=== PATIENT | male | born 1945 | race Caucasian/White ===

== ENCOUNTER 2021-02-20 11:13 | Inpatient (IN) ==
[2021-02-20] MEDS ORDERED: HYDROmorphone 0.5 MG/0.5 ML SYRINGE IM ONE (12:19)
[2021-02-20] MEDS ORDERED: ACETAMINOPHEN 325 MG TABLET PO ONE (12:20)
--- NOTE | 2021-02-20 12:35 | Emergency Department Note ---
Extremity Problem HPI <Rachel Ayala PA-C - Last Filed: 02/20/21 18:10> General Chief complaint: Trauma Stated complaint: possible lt hip fx Time Seen by Provider: 02/20/21 11:45 Source: patient Mode of arrival: ambulatory Limitations: no limitations History of Present Illness HPI Narrative: This is a 75-year-old wheelchair dependent male patient with history of a neurodegenerative condition who presents today with right hip pain and ambulatory dysfunction secondary to a fall he sustained on (3 days ago) while transferring from his car to his wheelchair independently and falling on his driveway blacktop. He states he fell on his right hip and his right elbow. Right elbow is painful but he has full range of motion and no deformities. His right hip had immediate pain but he was still able to stand and transfer. Over the last 3 days he has had increasing right hip pain and inability to fully range his right hip joint. He has been taking hydrocodone without much benefit. Other past medical history significant for stroke, coronary artery disease status post CABG x 3, and type 2 diabetes. Related Data Home Medications Medication Instructions Recorded Confirmed hydrocodone 7.5 mg-acetaminophen 1 - 2 tab PO QDAY PRN tab 07/25/18 02/20/21 325 mg tablet famotidine 40 mg tablet See Rx Instructions PO .COMPLEX 10/17/19 02/20/21 loratadine 10 mg tablet (Allergy See Rx Instructions PO .COMPLEX 10/17/19 02/20/21 Relief (loratadine)) [id number]-voro-minerals 18 See Rx Instructions PO .COMPLEX 10/17/19 02/20/21 mg-0.4 mg tablet isosorbide mononitrate 60 mg 60 mg PO QDAY tab 11/19/19 02/20/21 tablet,extended release 24 hr insulin glargine 100 unit/mL (3 20 unit SUB-Q HS 02/20/21 02/20/21 mL) subcutaneous pen metoprolol succinate 25 mg 25 mg PO QHS 02/20/21 02/20/21 tablet,extended release 24 hr rosuvastatin 5 mg tablet 5 mg PO QHS 02/20/21 02/20/21 valsartan 160 mg tablet 320 mg PO QHS 02/20/21 02/20/21 Previous Rx's Medication Instructions Recorded Standard Wheelchair #1 ea 01/17/19 aspirin 81 mg tablet,delayed 81 mg PO ONCE #30 tab 06/03/19 release Wheel chair ramp #1 ea 08/19/19 Wheelchair (electric) #1 ea 08/19/19 spironolactone 25 mg tablet 25 mg PO QDAY #90 tab 10/09/19 leg brace (Ankle Brace) #2 each 12/02/19 blood sugar diagnostic (Accu-Chek #100 each 02/25/20 Amanda Plus test strp) nitroglycerin 0.4 mg sublingual 0.4 mg BUCCAL Q5-15M PRN #7 tab 02/25/20 tablet Wheelchair #1 ea 04/16/20 Wheelchair #1 ea 04/16/20 fluoxetine 20 mg capsule 10 mg PO BID #180 cap 06/30/20 metformin 500 mg tablet 500 mg PO BID #180 tab 06/30/20 clopidogrel 75 mg tablet 75 mg PO QDAY #30 tab 09/02/20 Allergies Allergy/AdvReac Type Severity Reaction Status Date / Time atorvastatin [From Lipitor] AdvReac Intermediate Muscle Pain Verified 02/20/21 11:34 ezetimibe [From Vytorin] AdvReac Intermediate Muscle Pain Verified 02/20/21 11:34 simvastatin [From Vytorin] AdvReac Intermediate Muscle Pain Verified 02/20/21 11:34 hydromorphone [From Dilaudid] AdvReac Mild Itching Verified 02/20/21 11:34 Review of Systems <Rachel Ayala PA-C - Last Filed: 02/20/21 18:10> ROS ROS Narrative: Narrative: All systems ED: reviewed and negative except as stated. PFSH <Rachel Ayala PA-C - Last Filed: 02/20/21 18:10> Narrative Patient History Narrative: Narrative: Medical/Surgical/Family History All Active Problems (Updated 02/20/21 @ 18:10 by Rachel Ayala PA-C) Acetabulum fracture, right (Acute) Closed fracture of inferior pubic ramus (Acute) CVA (cerebral vascular accident) (Acute) Medicare annual wellness visit, initial (Acute) Diabetes mellitus with hyperglycemia (Acute) Osteomyelitis (Acute) Spondylosis without myelopathy or radiculopathy, lumbosacral region (Acute) Spondylosis without myelopathy or radiculopathy, lumbar region (Acute) History of surgery (Acute) History of stroke (Acute) Unspecified macular degeneration (Acute) Hypertension (Acute) Depression (Acute) Heart disease (Acute) Anxiety disorder, unspecified (Acute) Chronic pain (Acute) Low back pain (Acute) Wedge compression fracture of fourth lumbar vertebra (Acute) Post-traumatic stress disorder, chronic (Acute) Abnormal gait (Acute) Generalized weakness (Acute) History of wrist fracture (Chronic) Post traumatic stress disorder (Chronic) BPH (benign prostatic hypertrophy) with urinary retention (Chronic) Geriatric health maintenance (Chronic) Bradycardia (Chronic) Achilles tendinitis, left leg (Chronic) S/P coronary artery stent placement (Chronic) Rhinitis, allergic (Chronic) Retrograde ejaculation (Chronic) Plantar fasciitis (Chronic) Myocardial infarction, old (Chronic) Microalbuminuria (Chronic) Lumbar sprain (Chronic) Hypertension, essential (Chronic) Hyperlipemia (Chronic) Fatigue (Chronic) Esophageal reflux (Chronic) ED (erectile dysfunction) (Chronic) Diabetes mellitus, type II (Chronic) S/P CABG x 3 (Chronic) Chronic low back pain (Chronic) Arrhythmia (Chronic) Medical History Abnormal gait Achilles tendinitis, left leg Aftercare following joint replacement surgery Anxiety disorder, unspecified Arrhythmia BPH (benign prostatic hypertrophy) with urinary retention Bradycardia Chronic low back pain Chronic pain Cumulative trauma from repetitive motion CVA (cerebral vascular accident) Depression Diabetes mellitus with hyperglycemia Diabetes mellitus, type II ED (erectile dysfunction) Esophageal reflux Fatigue Geriatric health maintenance Heart disease Hemarthrosis of knee, right Hip pain History of stroke History of wrist fracture Left wrist fracture. Hyperlipemia Hypertension Hypertension, essential Injury of meniscus of knee 07/08/2014 Joint effusion-lower leg Low back pain Lumbar sprain Medicare annual wellness visit, initial Microalbuminuria 01/02/2014 Myalgia and myositis Due to statin, stop vytorin, try crestor 40mg once daily given its lower incidence of myalgia. Also LDL goal is < 70, pt was 75. Myocardial infarction, old 1995 Osteomyelitis Otitis externa, acute Plantar fasciitis Post traumatic stress disorder Post-traumatic stress disorder, chronic Retrograde ejaculation 05/02/2013 Rhinitis, allergic Sinus pain 03/01/2013 Skin tag Spondylosis without myelopathy or radiculopathy, lumbar region Spondylosis without myelopathy or radiculopathy, lumbosacral region Swelling of right lower extremity Unspecified macular degeneration Wedge compression fracture of fourth lumbar vertebra Surgical History History of knee surgery Left knee History of right knee surgery (10/28/14) Dr. Amaro - S/P microfracture of the medial femoral condyle right knee History of surgery Vertebroplasty L4 w/sed 09/26/19 Hx of left knee surgery (~1984) Hx of right knee surgery (~2014) Hx of transurethral prostatectomy S/P CABG x 3 [id number] S/P coronary artery stent placement 05/2006 - 3 stents S/P wrist surgery Family History Mother Essential hypertension Cardiac disease Type 2 diabetes mellitus Coronary artery disease Father Parkinsons Grandfather MVA (motor vehicle accident) Grandmother Kidney problem Social History Smoking Status: Former smoker Alcohol Intake Frequency: a few times a month Substance Use: does not use Exam <Rachel Ayala PA-C - Last Filed: 02/20/21 18:10> Narrative Narrative: General: AOx3, NAD, nontoxic appearing. Pleasant and conversant. HEENT: PERRL, EOMI, normocephalic. Moist mucous membranes. Normal facies and normal dentition. Chest: Symmetric Respiratory:No respiratory distress. Unlabored breathing. Heart: Regular rate Abdomen: Non-tender, Non distended, normal bowel tones. No organomegaly. Extremities: Warm and well perfused. No edema. DP 2+ bilaterally. No venous stasis. No leg length discrepancy or deformity to the right lower extremity. There is abrasion and ecchymosis to the right greater trochanter and this is exquisitely tender to palpation. Hip flexion is within normal limits, but the patient has very painful external hip rotation. He is neurovascularly intact. Right elbow with ecchymosis to the olecranon. No deformity, no pain to palpation of the epicondyles or radial head. Normal full range of motion. Neuro: No focal deficits. Cranial nerves II-XII grossly normal. Skin: Warm dry, no rashes or lesions, no cyanosis. Psych: Normal mood and affect Heme/Lymph: No abnormal bruising General Limitations: no limitations Course <Rachel Ayala PA-C - Last Filed: 02/20/21 18:10> Course Course Narrative: 75-year-old male who is wheelchair dependent with neurodegenerative condition comes to the ER after a fall with complaints of right hip pain, right elbow pain, and ambulatory dysfunction. Reevaluation(s) Reevaluation #1: 2 view x-ray of the right hip shows no acute fractures. Given the patient's level of pain and dysfunction will obtain a CT without contrast of the hip to rule out fractures not seen on plain film. Give 975 MG of oral Tylenol x1 dose Reevaluation #2: CT scan without contrast of the pelvis shows an acetabular roof fracture and a inferior pubic ramus fracture. I have spoken with Dr. Dodson who recommends nonoperative and nonweightbearing to the affected extremity. Given the patient 's profound deconditioning in the setting of his neurodegenerative disorder, I do not believe that he is a safe discharge home and would likely need fci placement. Both he and his are amenable to the idea and I have reached out to the hospitalist for admission. Awaiting their call. Vital Signs Vital signs: Vital Signs Temperature 98.2 F 02/20/21 11:14 Pulse Rate 99 H 02/20/21 11:14 Respiratory Rate 18 02/20/21 11:14 Blood Pressure 152/72 02/20/21 11:14 Pulse Oximetry (%) 95 02/20/21 11:14 Temperature 97.1 F 02/21/21 03:00 Pulse Rate 66 02/21/21 03:00 Respiratory Rate 16 02/21/21 03:00 Blood Pressure 142/70 02/21/21 03:00 Pulse Oximetry (%) 92 02/21/21 03:00 [facility] <Rachel Ayala PA-C - Last Filed: 02/20/21 18:10> [facility] Narrative Medical decision making narrative: Right acetabular fracture Right inferior pubic rami fracture I have spoken with Dr. Dodson who recommends conservative management. He will see the patient in follow-up in his clinic next week. Given the patient's fall risk and poorly controlled pain I have reached out to the hospitalist who has agreed to admission. The patient has been signed out to Dr. Wood. Lab Data Result diagrams: 02/20/21 14:24 02/20/21 14:24 Labs: Lab Results 02/20/21 02/20/21 02/20/21 Range/Units 14:24 14:24 14:24 WBC 7.8 (4.5-11.0) K/mcL RBC 4.69 (4.63-6.08) M/mcL Hgb 15.4 (13.7-17.5) g/dL Hct 44.6 (40.1-51.0) % POC Hct 45 (41-55) % MCV 95.1 (80.0-100.0) fL MCH 32.8 (26.0-34.0) pg MCHC 34.5 (31.0-36.0) g/dL RDW 12.5 (11.5-14.5) % Plt Count 152 (140-440) K/mcL MPV 10.0 (7.4-10.4) fL Neut % (Auto) 70.9 (38.0-78.0) % Lymph % (Auto) 15.1 L (15.5-49.0) % Traverse % (Auto) 11.5 (1.0-12.0) % Eos % (Auto) 2.1 (0.0-7.0) % Baso % (Auto) 0.4 (0.0-2.0) % Lymph # (Auto) 1.17 L (1.50-4.80) K/mcL Traverse # (Auto) 0.89 (0.10-0.90) K/mcL Eos # (Auto) 0.16 (0.00-0.70) K/mcL Baso # (Auto) 0.03 (0.00-0.30) K/mcL Absolute Neutrophils 5.51 (1.80-8.00) K/mcL POC Sodium 136 (133-145) mEq/L Sodium 132 L (133-145) mmol/L POC Potassium 3.9 (3.3-5.1) mEql/L Potassium 3.9 (3.3-5.1) mmol/L POC Chloride 99 (96-108) mEq/L Chloride 98 (96-108) mmol/L Carbon Dioxide 24 (22-30) mmol/L POC Total CO2 25 (22-30) mmol/L Anion Gap 10.0 (8.0-16.0) POC BUN 17 (6-20) mg/dL BUN 11 (8-23) mg/dL Creatinine 0.6 L (0.7-1.2) mg/dL POC Creatinine 0.7 (0.6-1.2) mg/dL GFR Calculation 98 Glucose 103 (70-105) mg/dL POC Glucose 105 (70-105) mg/dL Calcium 10.0 (8.6-10.4) mg/dL POC WB Ioniz Calcium 1.32 (1.16-1.32) mmEq/L Total Bilirubin 0.8 (0.1-1.0) mg/dL AST 18 (<40) U/L ALT 13 (<40) U/L Alkaline Phosphatase 57 (39-117) U/L Total Protein 6.5 (5.9-8.4) gm/dL Albumin 3.6 (3.2-5.2) gm/dL Globulin 2.9 (2.2-3.7) gm/dL Albumin/Globulin Ratio 1.2 (1.0-2.3) ED POC Tests ED POC Tests: VAL - SARS Antigen Negative Discharge Plan Patient/Caregiver Discharge Instructions Pt seen by [facility]/PA only: Yes Clinical Impression: Acetabulum fracture, right, Closed fracture of inferior pubic ramus Patient Disposition: Xfer As Inpt ([facility]) Condition: Fair Discharge Date/Time: 02/20/21 17:33
--- NOTE | 2021-02-20 12:58 | XRay Report ---
INDICATION: fall TECHNIQUE: AP pelvis. AP and lateral right hip COMPARISON: Previous pelvis dated 07/05/2018 FINDINGS: Definite acute fracture is not identified. CT scan has been ordered IMPRESSION: No definite fracture, CT scan pending Interpreted and Authenticated by: Abel Carlisle 02/20/21
--- NOTE | 2021-02-20 13:06 | Cat Scan Report ---
INDICATION: r/o right hip fx TECHNIQUE: Axial images to the pelvis. Sagittal and coronal reformatted images COMPARISON: Plain film examination dated 02/20/2021 FINDINGS: Nondisplaced fracture of the right inferior pubic ramus. Fracture of the right acetabular roof, best visualized on image #124. There is a fracture at the junction of the superior right pubic bone and acetabulum. This has an intra-articular component. These fractures are nondisplaced. Right femoral head and neck are negative. No right hip fracture. Left hemipelvis is negative. Sacrum is negative. There is a small intrapelvic hematoma deep to the right acetabulum IMPRESSION: 1. Nondisplaced fracture of the right inferior pubic ramus 2. Fractures of the right acetabular roof and junction of the right pubic bone and acetabulum. 3. Negative right femoral head and neck Interpreted and Authenticated by: Abel Carlisle 02/20/21
[2021-02-20 14:48] LABS: POC Blood Urea Nitrogen 17 mg/dL (6-20); POC CO2 25 mmol/L (22-30); POC Calcium, Ionized 1.32 mmEq/L (1.16-1.32); POC Chloride 99 mEq/L (96-108); POC Creatinine 0.7 mg/dL (0.6-1.2); POC Glucose, Random 105 mg/dL (70-105); POC Hematocrit 45 % (41-55); POC Potassium 3.9 mEql/L (3.3-5.1); POC Sodium 136 mEq/L (133-145)
--- NOTE | 2021-02-20 14:55 | Internal Med History&Physical ---
HPI History of Present Illness Patient information: Note initiated : 02/20/21 at 2:49 pm Service Date, if different from initiated Date: [] Patient: Abel Cuevas 75 y/o M admitted on for possible lt hip fx. Chief Complaint: [] History of present illness: Mr. Cuevas is a 75 year old M With history of a neuro degenerative disorder which is currently being worked up by neurology, he sees a neurologist in [place] Dr. Velásquez. He is wheelchair-bound because of this but is able to transfer. 3 days ago he was transferring from wheelchair to car when he fell onto his right side with immediate pain. He was able to transfer after that but the pain has become progressively worse. Thus he presented to the ED where CT imaging was done which showed a nondisplaced fracture the right and inferior pubic ramus as well as fracture of the right acetabular roof and junction of the right pubic bone. Case was discussed with Dr. Dodson who stated this is nonoperative and that the patient should remain nonweightbearing at this time on that side. Denies any recent illnesses no chest pain shortness of breath or new complaints Patient is unsafe for home as he has limited support to care for him given his new nonweightbearing status. Review of Systems: Pertinent positives as above. Denies headache/fever/chills/chest or abdominal pain/cough/dyspnea/diarrhea. Otherwise see above. PFSH PFSH All Active Problems CVA (cerebral vascular accident) (Acute) Medicare annual wellness visit, initial (Acute) Diabetes mellitus with hyperglycemia (Acute) Osteomyelitis (Acute) Spondylosis without myelopathy or radiculopathy, lumbosacral region (Acute) Spondylosis without myelopathy or radiculopathy, lumbar region (Acute) History of surgery (Acute) History of stroke (Acute) Unspecified macular degeneration (Acute) Hypertension (Acute) Depression (Acute) Heart disease (Acute) Anxiety disorder, unspecified (Acute) Chronic pain (Acute) Low back pain (Acute) Wedge compression fracture of fourth lumbar vertebra (Acute) Post-traumatic stress disorder, chronic (Acute) Abnormal gait (Acute) Generalized weakness (Acute) History of wrist fracture (Chronic) Post traumatic stress disorder (Chronic) BPH (benign prostatic hypertrophy) with urinary retention (Chronic) Geriatric health maintenance (Chronic) Bradycardia (Chronic) Achilles tendinitis, left leg (Chronic) S/P coronary artery stent placement (Chronic) Rhinitis, allergic (Chronic) Retrograde ejaculation (Chronic) Plantar fasciitis (Chronic) Myocardial infarction, old (Chronic) Microalbuminuria (Chronic) Lumbar sprain (Chronic) Hypertension, essential (Chronic) Hyperlipemia (Chronic) Fatigue (Chronic) Esophageal reflux (Chronic) ED (erectile dysfunction) (Chronic) Diabetes mellitus, type II (Chronic) S/P CABG x 3 (Chronic) Chronic low back pain (Chronic) Arrhythmia (Chronic) Medical History Abnormal gait Achilles tendinitis, left leg Aftercare following joint replacement surgery Anxiety disorder, unspecified Arrhythmia BPH (benign prostatic hypertrophy) with urinary retention Bradycardia Chronic low back pain Chronic pain Cumulative trauma from repetitive motion CVA (cerebral vascular accident) Depression Diabetes mellitus with hyperglycemia Diabetes mellitus, type II ED (erectile dysfunction) Esophageal reflux Fatigue Geriatric health maintenance Heart disease Hemarthrosis of knee, right Hip pain History of stroke History of wrist fracture Left wrist fracture. Hyperlipemia Hypertension Hypertension, essential Injury of meniscus of knee 07/08/2014 Joint effusion-lower leg Low back pain Lumbar sprain Medicare annual wellness visit, initial Microalbuminuria 01/02/2014 Myalgia and myositis Due to statin, stop vytorin, try crestor 40mg once daily given its lower incidence of myalgia. Also LDL goal is < 70, pt was 75. Myocardial infarction, old 1995 Osteomyelitis Otitis externa, acute Plantar fasciitis Post traumatic stress disorder Post-traumatic stress disorder, chronic Retrograde ejaculation 05/02/2013 Rhinitis, allergic Sinus pain 03/01/2013 Skin tag Spondylosis without myelopathy or radiculopathy, lumbar region Spondylosis without myelopathy or radiculopathy, lumbosacral region Swelling of right lower extremity Unspecified macular degeneration Wedge compression fracture of fourth lumbar vertebra Surgical History History of knee surgery Left knee History of right knee surgery (10/28/14) Dr. Amaro - S/P microfracture of the medial femoral condyle right knee History of surgery Vertebroplasty L4 w/sed 09/26/19 Hx of left knee surgery (~1984) Hx of right knee surgery (~2014) Hx of transurethral prostatectomy S/P CABG x 3 [id number] S/P coronary artery stent placement 05/2006 - 3 stents S/P wrist surgery Family History Mother Essential hypertension Cardiac disease Type 2 diabetes mellitus Coronary artery disease Father Parkinsons Grandfather MVA (motor vehicle accident) Grandmother Kidney problem Social History marital status: smoking status: Former smoker quit date: 03/13/1967 pack-years: 8 alcohol intake frequency: a few times a month substance use type: does not use MEDS/ALLERGIES Home Medications and Allergies Home Medications Medication Instructions Recorded Confirmed Type hydrocodone 7.5 mg-acetaminophen 1 - 2 tab PO QDAY PRN tab 07/25/18 02/20/21 History 325 mg tablet Standard Wheelchair #1 ea 01/17/19 12/16/20 Rx aspirin 81 mg tablet,delayed 81 mg PO ONCE #30 tab 06/03/19 02/20/21 Rx release Wheel chair ramp #1 ea 08/19/19 12/16/20 Rx Wheelchair (electric) #1 ea 08/19/19 12/16/20 Rx spironolactone 25 mg tablet 25 mg PO QDAY #90 tab 10/09/19 02/20/21 Rx famotidine 40 mg tablet See Rx Instructions PO .COMPLEX 10/17/19 02/20/21 History loratadine 10 mg tablet (Allergy See Rx Instructions PO .COMPLEX 10/17/19 02/20/21 History Relief (loratadine)) [id number]-minerals 18 See Rx Instructions PO .COMPLEX 10/17/19 02/20/21 History mg-0.4 mg tablet isosorbide mononitrate 60 mg 60 mg PO QDAY tab 11/19/19 02/20/21 History tablet,extended release 24 hr leg brace (Ankle Brace) #2 each 12/02/19 12/16/20 Rx blood sugar diagnostic (Accu-Chek #100 each 02/25/20 12/16/20 Rx Amanda Plus test strp) nitroglycerin 0.4 mg sublingual 0.4 mg BUCCAL Q5-15M PRN #7 tab 02/25/20 02/20/21 Rx tablet Wheelchair #1 ea 04/16/20 12/16/20 Rx Wheelchair #1 ea 04/16/20 12/16/20 Rx fluoxetine 20 mg capsule 10 mg PO BID #180 cap 06/30/20 02/20/21 Rx metformin 500 mg tablet 500 mg PO BID #180 tab 06/30/20 02/20/21 Rx clopidogrel 75 mg tablet 75 mg PO QDAY #30 tab 09/02/20 02/20/21 Rx insulin glargine 100 unit/mL (3 20 unit SUB-Q HS 02/20/21 02/20/21 History mL) subcutaneous pen metoprolol succinate 25 mg 25 mg PO QHS 02/20/21 02/20/21 History tablet,extended release 24 hr rosuvastatin 5 mg tablet 5 mg PO QHS 02/20/21 02/20/21 History valsartan 160 mg tablet 320 mg PO QHS 02/20/21 02/20/21 History Allergies Allergy/AdvReac Type Severity Reaction Status Date / Time atorvastatin [From Lipitor] AdvReac Intermediate Muscle Pain Verified 02/20/21 11:34 ezetimibe [From Vytorin] AdvReac Intermediate Muscle Pain Verified 02/20/21 11:34 simvastatin [From Vytorin] AdvReac Intermediate Muscle Pain Verified 02/20/21 11:34 hydromorphone [From Dilaudid] AdvReac Mild Itching Verified 02/20/21 11:34 EXAM Constitutional Vitals: Temp Pulse Resp BP Pulse Ox 98.2 F 41 L 18 131/92 91 02/20/21 11:14 02/20/21 14:31 02/20/21 11:14 02/20/21 14:31 02/20/21 14:31 Exam: General: Alert, Awake, No acute Distress Eyes/N/T: EOMI, PERRL, MM Head/Neck: neck supple, normocephalic atraumatic CV: RRR, 3/6SM, normal s1/s2 Pulm: Clear b/l, no wheezing/rhonchi/rales Abd: soft, nontender, +BS x4 Ext: no clubbing/cyanosis/edema Neuro: Alert, no focal deficits, moves all extremities, CN 2-12 grossly intact, symmetrical strength b/l upper/lower, sensations intact b/l upper/lower Skin: warm/dry DATA Data Completed and Pending Labs: Labs from last 24 hours 02/20/21 02/20/21 02/20/21 14:24 14:24 14:24 WBC Pending RBC Pending Hgb Pending Hct Pending POC Hct 45 MCV Pending MCH Pending MCHC Pending RDW Pending Plt Count Pending MPV Pending Neut % (Auto) Pending POC Sodium 136 Sodium Pending POC Potassium 3.9 Potassium Pending POC Chloride 99 Chloride Pending Carbon Dioxide Pending POC Total CO2 25 Anion Gap Pending POC BUN 17 BUN Pending Creatinine Pending POC Creatinine 0.7 GFR Calculation Pending Glucose Pending POC Glucose 105 Calcium Pending POC WB Ioniz Calcium 1.32 Total Bilirubin Pending AST Pending ALT Pending Alkaline Phosphatase Pending Total Protein Pending Albumin Pending Globulin Pending Albumin/Globulin Ratio Pending A/P Narrative A/P Narrative: A: *Right acetabular and pubic rami fracture: -per Ortho this is nonoperative and patient should be nonweightbearing on that side for now *Neuro degenerative d/s NOS currently being worked up by neurology: Dr. Velásquez in [place] *Generalized weakness/deconditioning/debility: Patient is wheelchair-bound but typically able to transfer on her own, but not now *DM w/neuropathy: *CAD with CABG/stent: *HTN: *Depression: *GERD: P: -per Ortho this is nonoperative and patient should be nonweightbearing on that side for now -pt/ot -CM for placement -Pain control -cont /plavix/imdur -cont BB/ARB/aldactone -basal and SSI -Home medication reconciliation - -ppx: lovenox / home H2 full code Time Spent With Patient Time: Total time spent is greater than 50% in coordination of care (as documented) at patient's floor/unit and/or counseling patient:
[2021-02-20 15:22] LABS: Basophils # (Auto) 0.03 K/mcL (0.00-0.30); Basophils % (Auto) 0.4 % (0.0-2.0); Eosinophils # (Auto) 0.16 K/mcL (0.00-0.70); Eosinophils % (Auto) 2.1 % (0.0-7.0); Hematocrit 44.6 % (40.1-51.0); Hemoglobin 15.4 g/dL (13.7-17.5); Lymphocytes # (Auto) 1.17 K/mcL (1.50-4.80); Lymphocytes % (Auto) 15.1 % (15.5-49.0); Mean Cell Volume 95.1 fL (80.0-100.0); Mean Corpuscular HGB Conc 34.5 g/dL (31.0-36.0); Monocytes # (Auto) 0.89 K/mcL (0.10-0.90); Monocytes % (Auto) 11.5 % (1.0-12.0); Neutrophils % (Auto) 70.9 % (38.0-78.0); Platelet Count 152 K/mcL (140-440); RBC 4.69 M/mcL (4.63-6.08); Red Cell Distribution Width 12.5 % (11.5-14.5); WBC 7.8 K/mcL (4.5-11.0)
[2021-02-20 15:44] LABS: ALT/SGPT 13 U/L (<40); AST/SGOT 18 U/L (<40); Albumin 3.6 gm/dL (3.2-5.2); Albumin/Globulin Ratio 1.2 (1.0-2.3); Alkaline Phosphatase 57 U/L (39-117); Bilirubin,Total 0.8 mg/dL (0.1-1.0); Blood Urea Nitrogen 11 mg/dL (8-23); Carbon Dioxide 24 mmol/L (22-30); Chloride 98 mmol/L (96-108); Globulin 2.9 gm/dL (2.2-3.7); Glomerular Filtration Rate 98; Glucose 103 mg/dL (70-105)
[2021-02-20] MEDS ORDERED: DEXTROSE 31 GM ORAL.SUSP PO PRN (17:56)
[2021-02-20] MEDS ORDERED: POTASSIUM CHLORIDE 40 MEQ in DEXTROSE 5% IN WATER 500 ML IV PRN (17:56)
[2021-02-20] MEDS ORDERED: DEXTROSE 50% 50 ML VIAL IV PRN (17:56)
[2021-02-20] MEDS ORDERED: METHOCARBAMOL 750 MG TABLET PO PRN (17:56)
[2021-02-20] MEDS ORDERED: POTASSIUM CHLORIDE 20 MEQ TABLET PO PRN ×2 (17:56)
[2021-02-20] MEDS ORDERED: MAGNESIUM SULFATE 2 GM/50 ML BAG IV PRN (17:56)
[2021-02-20] MEDS ORDERED: IPRATROPIUM/ALBUTEROL 3 ML AMPUL.NEB NEB PRN (17:56)
[2021-02-20] MEDS ORDERED: POLYETHYLENE GLYCOL 3350 17 GM PACKET PO PRN (17:56)
[2021-02-20] MEDS ORDERED: morphine 4 MG/ML VIAL IV PRN (17:56)
[2021-02-20] MEDS ORDERED: ACETAMINOPHEN 325 MG TABLET PO PRN (17:56)
[2021-02-20] MEDS ORDERED: SENNOSIDES 1 TABLET PO PRN (17:56)
[2021-02-20] MEDS: INSULIN LISPRO 1 UNIT/0.01 ML UNIT SQ SCH ×2 (18:52→20:49)
[2021-02-20] MEDS ORDERED: NITROGLYCERIN 0.4 MG TAB.SUBL SL PRN (19:40)
[2021-02-20] MEDS ORDERED: INSULIN GLARGINE, HUMAN 1 UNIT/0.01 ML SQ SCH (21:00)
[2021-02-20] MEDS: DOCUSATE SODIUM 100 MG CAPSULE PO SCH (21:04)
[2021-02-20] MEDS: 0.9 % SODIUM CHLORIDE 10 ML SYRINGE IV SCH (21:04)
[2021-02-20] MEDS: FAMOTIDINE 20 MG TABLET PO SCH (21:04)
[2021-02-20] MEDS: FLUoxetine HCL 10 MG CAPSULE PO SCH (21:04)
[2021-02-20] MEDS: ROSUVASTATIN 5 MG PO SCH (21:05)
[2021-02-20] MEDS: ONDANSETRON 4 MG/2 ML VIAL IV PRN (22:21)
[2021-02-21] MEDS: 0.9 % SODIUM CHLORIDE 10 ML SYRINGE IV SCH ×3 (08:24→21:07)
[2021-02-21] MEDS: METOPROLOL SUCCINATE 25 MG TAB.XL.24H PO SCH (08:25)
[2021-02-21] MEDS: INSULIN LISPRO 1 UNIT/0.01 ML UNIT SQ SCH ×4 (08:25→21:08)
[2021-02-21] MEDS: DOCUSATE SODIUM 100 MG CAPSULE PO SCH ×2 (08:25→21:08)
[2021-02-21] MEDS: ENOXAPARIN 40 MG/0.4 ML SYRINGE SQ SCH (08:25)
[2021-02-21] MEDS: ISOSORBIDE MONONITRATE 60 MG TAB.XL.24H PO SCH (08:25)
[2021-02-21] MEDS: CLOPIDOGREL 75 MG TABLET PO SCH (08:25)
[2021-02-21] MEDS: HYDROCODONE/APAP 7.5/325MG TABLET PO PRN (08:26)
[2021-02-21] MEDS: FLUoxetine HCL 10 MG CAPSULE PO SCH ×2 (08:28→21:07)
--- NOTE | 2021-02-21 08:49 | Internal Med Progress Note ---
SUBJECTIVE Subjective Patient information: Note initiated : 02/21/21 at 8:46 am Service Date, if different from initiated Date: [] Patient: Abel Cuevas 75 y/o M admitted on 02/20/21 for possible lt hip fx. Chief Complaint: [] Interval history: History of present illness: Mr. Cuevas is a 75 year old M With history of a neuro degenerative disorder which is currently being worked up by neurology, he sees a neurologist in [place] Dr. Velásquez. He is wheelchair-bound because of this but is able to transfer. 3 days ago he was transferring from wheelchair to car when he fell onto his right side with immediate pain. He was able to transfer after that but the pain has become progressively worse. Thus he presented to the ED where CT imaging was done which showed a nondisplaced fracture the right and inferior pubic ramus as well as fracture of the right acetabular roof and junction of the right pubic bone. Case was discussed with Dr. Dodson who stated this is nonoperative and that the patient should remain nonweightbearing at this time on that side. Denies any recent illnesses no chest pain shortness of breath or new complaints Patient is unsafe for home as he has limited support to care for him given his new nonweightbearing status. 02/21 No overnight or new complaints. Awaiting placement. Per Ortho nonweightbearing on that side for 4 to 6 weeks and follow-up with Ortho outpatient. Review of Systems: denies headache/fever/chills/nausea/vomiting/chest or abdominal pain/cough/dyspnea/diarrhea. Otherwise see above. Constitutional Vitals: Vital Signs Temp Pulse Resp BP Pulse Ox 97.8 F 66 20 148/70 94 02/21/21 07:00 02/21/21 03:00 02/21/21 07:00 02/21/21 07:00 02/21/21 07:00 Period Temp Pulse Resp BP Sys/Hanson Pulse Ox Last 24 Hr 97.1 F-98.2 F 41-99 16-20 122-157/58-96 91-98 Intake and Output 02/20/21 02/21/21 02/21/21 21:59 05:59 13:59 Intake Total 240 Output Total 1 700 Balance -1 -460 Weight 85.729 kg Intake & Output: Intake & Output 02/20/21 02/21/2121 21:59 05:59 13:59 Intake Total 240 Output Total 1 700 Balance -1 -460 Weight 85.729 kg Intake: Oral 240 Output: Void Amount 600 # of times incontinent of urine 1 Emesis 100 Other: Urine Appearance Clear Urine Color Dark Yellow Urine Odor Strong Exam: General: Alert, Awake, No acute Distress Eyes/N/T: EOMI, Head/Neck: neck supple, CV: RRR, 3/6SM, normal s1/s2 Pulm: Clear b/l, no wheezing/rhonchi/rales Abd: soft, nontender, +BS x4 Ext: no clubbing/cyanosis/edema Neuro: Alert, no focal deficits, moves all extremities, Skin: warm/dry OBJ DATA Labs CBC & Chem 7: 02/20/21 14:24 02/20/21 14:24 Labs: Abnormal Lab Results 02/20/21 02/20/21 14:24 14:24 Lymph % (Auto) 15.1 L Lymph # (Auto) 1.17 L Sodium 132 L Creatinine 0.6 L Meds: Medications Acetaminophen (Acetaminophen 325 Mg Tablet) 650 mg PO Q6HP PRN; Protocol PRN Reason: Per Pain Protocol/Fever > 101 Hydrocodone Bitart/Acetaminophen (Hydrocodone/Apap 7.5/325mg Tablet) 1 - 2 tab PO DAILYP PRN; Protocol PRN Reason: Pain Level 3-6 Last Admin: 02/21/21 08:26 Dose: 1 tab Documented by: Albuterol/Ipratropium (Ipratropium/Albuterol 3 Ml Ampul.Neb) 3 ml NEB Q4HP PRN PRN Reason: Shortness Of Breath Clopidogrel Bisulfate (Clopidogrel 75 Mg Tablet) 75 mg PO QDAY [facility] Last Admin: 02/21/21 08:25 Dose: 75 mg Documented by: Dextrose (Dextrose 50% 50 Ml Vial) 0 ml IV UD PRN PRN Reason: Hypoglycemia Diagnostic Test (Pha) (Accu-Chek 1 Each Strip) 1 each FS ACHS [facility] Last Admin: 02/21/21 08:24 Dose: 1 each Documented by: Docusate Sodium (Docusate Sodium 100 Mg Capsule) 100 mg PO BID [facility] Last Admin: 02/21/21 08:25 Dose: 100 mg Documented by: Enoxaparin Sodium (Enoxaparin 40 Mg/0.4 Ml Syringe) 40 mg SQ DAILY [facility] Last Admin: 02/21/21 08:25 Dose: 40 mg Documented by: Famotidine (Famotidine 20 Mg Tablet) 40 mg PO [facility] Last Admin: 02/20/21 21:04 Dose: 40 mg Documented by: Fluoxetine HCl (Fluoxetine Hcl 10 Mg Capsule) 10 mg PO BID [facility] Last Admin: 02/21/21 08:28 Dose: 10 mg Documented by: Glucose (Dextrose 31 Gm Oral.Susp) 15 gm PO PRN PRN PRN Reason: Hypoglycemia Potassium Chloride 40 meq/ (Dextrose) 520 mls @ 130 mls/hr IV UD PRN PRN Reason: Potassium < 3 Magnesium Sulfate (Magnesium Sulfate) 2 gm in 50 mls @ 50 mls/hr IV UD PRN PRN Reason: Magnesium </= 1.6 Insulin Glargine (Insulin Glargine, Human 1 Unit/0.01 Ml) 30 unit SQ [facility] Last Admin: 02/20/21 20:49 Dose: Not Given Documented by: Insulin Human Lispro (Insulin Lispro 1 Unit/0.01 Ml Unit) 0 unit SQ [facility]; Protocol Last Admin: 02/21/21 08:25 Dose: Not Given Documented by: Isosorbide Mononitrate (Isosorbide Mononitrate 60 Mg Tab.Xl.24h) 60 mg PO QDAY [facility] Last Admin: 02/21/21 08:25 Dose: 60 mg Documented by: Methocarbamol (Methocarbamol 750 Mg Tablet) 750 mg PO TIDP PRN PRN Reason: Muscle Spasm Metoprolol Succinate (Metoprolol Succinate 25 Mg Tab.Xl.24h) 25 mg PO QDAY [facility] Last Admin: 02/21/21 08:25 Dose: 25 mg Documented by: Morphine Sulfate (Morphine 4 Mg/Ml Vial) 0 mg IV Q3HP PRN PRN Reason: Pain Nitroglycerin (Nitroglycerin 0.4 Mg Tab.Subl) 0.4 mg SL Q5M PRN PRN Reason: Chest Pain Ondansetron HCl (Ondansetron 4 Mg/2 Ml Vial) 4 mg IV Q4HP PRN PRN Reason: Nausea And Vomiting Last Admin: 02/20/21 22:21 Dose: 4 mg Documented by: Rosuvastatin [ (Crestor] 5 Mg Tab) 1 dose PO [facility] Last Admin: 02/20/21 21:05 Dose: Not Given Documented by: Polyethylene Glycol (Polyethylene Glycol 3350 17 Gm Packet) 17 gm PO DAILYP PRN PRN Reason: Constipation Potassium Chloride (Potassium Chloride 20 Meq Tablet) 40 meq PO UD PRN PRN Reason: Potssium is 3-3.5 Potassium Chloride (Potassium Chloride 20 Meq Tablet) 40 meq PO UD PRN PRN Reason: Potassium < 3 Senna (Sennosides 1 Tablet) 2 tab PO DAILYP PRN PRN Reason: Constipation Sodium Chloride (0.9 % Sodium Chloride 10 Ml Syringe) 10 ml IV Q8 [facility] Last Admin: 02/21/21 08:24 Dose: 10 ml Documented by: A/P Narrative A/P Narrative: A: *Right acetabular and pubic rami fracture: -per Ortho this is nonoperative and patient should be nonweightbearing on that side for now *Neuro degenerative d/s NOS currently being worked up by neurology: Dr. Velásquez in [place] *Generalized weakness/deconditioning/debility: Patient is wheelchair-bound but typically able to transfer on his own, but not now *DM w/neuropathy: *CAD with CABG/stent: *HTN: *Depression: *GERD: P: -per Ortho this is nonoperative and patient should be nonweightbearing on that side 4-6wks, f/u with ortho outpt -pt/ot -CM for placement -Pain control -cont /plavix/imdur -cont BB/ARB/aldactone -basal and SSI -ppx: lovenox / home H2 full code Time Spent With Patient Time: Total time spent is greater than 50% in coordination of care (as documented) at patient's floor/unit and/or counseling patient:
[2021-02-21] MEDS: SPIRONOLACTONE 25 MG TABLET PO SCH (10:50)
--- NOTE | 2021-02-21 11:37 | Discharge Summary ---
Discharge Provider Provider Patient information: Note initiated : 02/21/21 at 11:36 am Service Date, if different from initiated Date: [] Patient: Abel Cuevas 75 y/o M admitted on 02/20/21 for possible lt hip fx. Chief Complaint: [] Date of admission: 02/20/21 17:33 Primary care physician: Hunter Denise M.D., F.A.A.F.P. Consults: 02/20/21 Consult to Physician [CONS] Stat Comment: Consulting Provider: George Wood Reason For Exam: Physician to Consult Discharge Meds Discharge Medications Home Medications hydrocodone 7.5 mg-acetaminophen 325 mg tablet 1 - 2 tab PO QDAY PRN tab 07/25/18 [History Confirmed 02/20/21 Last Taken Unknown] Standard Wheelchair #1 ea 01/17/19 [Rx Confirmed 02/20/21 Last Taken Unknown] aspirin 81 mg tablet,delayed release 81 mg PO ONCE #30 tab 06/03/19 [Rx Confirmed 02/20/21 Last Taken Unknown] Wheel chair ramp #1 ea 08/19/19 [Rx Confirmed 02/20/21 Last Taken Unknown] Wheelchair (electric) #1 ea 08/19/19 [Rx Confirmed 02/20/21 Last Taken Unknown] spironolactone 25 mg tablet 25 mg PO QDAY #90 tab 10/09/19 [Rx Confirmed 02/20/21 Last Taken Unknown] famotidine 40 mg tablet See Rx Instructions PO .COMPLEX 10/17/19 [History Confirmed 02/20/21 Last Taken Unknown] loratadine 10 mg tablet (Allergy Relief (loratadine)) See Rx Instructions PO .COMPLEX 10/17/19 [History Confirmed 02/20/21 Last Taken Unknown] hmfdqgcgsqnw-Dg-wxnn-minerals 18 mg-0.4 mg tablet See Rx Instructions PO .COMPLEX 10/17/19 [History Confirmed 02/20/21 Last Taken Unknown] isosorbide mononitrate 60 mg tablet,extended release 24 hr 60 mg PO QDAY tab 11/19/19 [History Confirmed 02/20/21 Last Taken Unknown] leg brace (Ankle Brace) #2 each 12/02/19 [Rx Confirmed 02/20/21 Last Taken Unknown] blood sugar diagnostic (Accu-Chek Amanda Plus test strp) #100 each 02/25/20 [Rx Confirmed 02/20/21 Last Taken Unknown] nitroglycerin 0.4 mg sublingual tablet 0.4 mg BUCCAL Q5-15M PRN #7 tab 02/25/20 [Rx Confirmed 02/20/21 Last Taken Unknown] Wheelchair #1 ea 04/16/20 [Rx Confirmed 02/20/21 Last Taken Unknown] Wheelchair #1 ea 04/16/20 [Rx Confirmed 02/20/21 Last Taken Unknown] fluoxetine 20 mg capsule 10 mg PO BID #180 cap 06/30/20 [Rx Confirmed 02/20/21 Last Taken Unknown] metformin 500 mg tablet 500 mg PO BID #180 tab 06/30/20 [Rx Confirmed 02/20/21 Last Taken Unknown] clopidogrel 75 mg tablet 75 mg PO QDAY #30 tab 09/02/20 [Rx Confirmed 02/20/21 Last Taken Unknown] insulin glargine 100 unit/mL (3 mL) subcutaneous pen 20 unit SUB-Q HS 02/20/21 [History Confirmed 02/20/21 Last Taken Unknown] metoprolol succinate 25 mg tablet,extended release 24 hr 25 mg PO QHS 02/20/21 [History Confirmed 02/20/21 Last Taken Unknown] rosuvastatin 5 mg tablet 5 mg PO QHS 02/20/21 [History Confirmed 02/20/21 Last Taken Unknown] valsartan 160 mg tablet 320 mg PO QHS 02/20/21 [History Confirmed 02/20/21 Last Taken Unknown] COURSE Hospital Course Hospital course: Interval history: History of present illness: Mr. Cuevas is a 75 year old M With history of a neuro degenerative disorder which is currently being worked up by neurology, he sees a neurologist in [place] Dr. Velásquez. He is wheelchair-bound because of this but is able to transfer. 3 days ago he was transferring from wheelchair to car when he fell onto his right side with immediate pain. He was able to transfer after that but the pain has become progressively worse. Thus he presented to the ED where CT imaging was done which showed a nondisplaced fracture the right and inferior pubic ramus as well as fracture of the right acetabular roof and junction of the right pubic bone. Case was discussed with Dr. Dodson who stated this is nonoperative and that the patient should remain nonweightbearing at this time on that side. Denies any recent illnesses no chest pain shortness of breath or new complaints Patient is unsafe for home as he has limited support to care for him given his new nonweightbearing status. 02/21 No overnight or new complaints. Awaiting placement. Per Ortho nonweightbearing on that side for 4 to 6 weeks and follow-up with Ortho outpatient. A: *Right acetabular and pubic rami fracture: -per Ortho this is nonoperative and patient should be nonweightbearing on that side for now *Neuro degenerative d/s NOS currently being worked up by neurology: Dr. Velásquez in [place] *Generalized weakness/deconditioning/debility: Patient is wheelchair-bound but typically able to transfer on his own, but not now *DM w/neuropathy: *CAD with CABG/stent: *HTN: *Depression: *GERD: Discharge diagnosis: Pelvic fracture debility Secondary discharge diagnosis: Neurodegenerative disorder currently being worked up generalized weakness debility diabetes hypertension CAD depression Time Spent with Patient Time attestation: Total time spent providing and/or coordinating discharge services: Time spent: Greater than 30 minutes EXAM Constitutional Vitals: Temp Pulse Resp BP Pulse Ox 97.8 F 66 20 148/70 94 02/21/21 07:00 02/21/21 03:00 02/21/21 07:00 02/21/21 07:00 02/21/21 07:00 Discharge Data Data Completed and Pending Labs on day of discharge: Labs from last 24 hours 02/20/21 02/20/21 02/20/21 14:24 14:24 14:24 WBC 7.8 RBC 4.69 Hgb 15.4 Hct 44.6 POC Hct 45 MCV 95.1 MCH 32.8 MCHC 34.5 RDW 12.5 Plt Count 152 MPV 10.0 Neut % (Auto) 70.9 Lymph % (Auto) 15.1 L [place] % (Auto) 11.5 Eos % (Auto) 2.1 Baso % (Auto) 0.4 Lymph # (Auto) 1.17 L [place] # (Auto) 0.89 Eos # (Auto) 0.16 Baso # (Auto) 0.03 Absolute Neutrophils 5.51 POC Sodium 136 Sodium 132 L POC Potassium 3.9 Potassium 3.9 POC Chloride 99 Chloride 98 Carbon Dioxide 24 POC Total CO2 25 Anion Gap 10.0 POC BUN 17 BUN 11 Creatinine 0.6 L POC Creatinine 0.7 GFR Calculation 98 Glucose 103 POC Glucose 105 Calcium 10.0 POC WB Ioniz Calcium 1.32 Total Bilirubin 0.8 AST 18 ALT 13 Alkaline Phosphatase 57 Total Protein 6.5 Albumin 3.6 Globulin 2.9 Albumin/Globulin Ratio 1.2 Discharge Plan Patient/Caregiver Discharge Instructions Activity: increase activity as tolerated Diet: Consistent Carbohydrate Activity Restrictions/Additional Instructions: Nonweightbearing on right side for 4 to 6 weeks, follow-up with orthopedic surgery Dr. Dodson. Prescriptions: Continued (DME) Standard Wheelchair standard Qty: 1 0RF Rx Instructions: Please provider a standard size wheel chair for patient. If insurance will pay for electric please patient would like that (DME) Wheelchair (electric) Qty: 1 0RF Rx Instructions: As directed (DME) Wheel chair ramp Qty: 1 0RF Rx Instructions: As directed spironolactone 25 mg tablet 25 mg PO QDAY Qty: 90 4RF (DME) Ankle Brace Misc See Rx Instructions .ROUTE .MEDSUPPLY Qty: 2 0RF Rx Instructions: As directed (DME) Wheelchair Manual Qty: 1 0RF Rx Instructions: As directed (DME) Wheelchair Electric Qty: 1 0RF Rx Instructions: As directed fluoxetine 20 mg capsule 10 mg PO BID Qty: 180 4RF metformin 500 mg tablet 500 mg PO BID Qty: 180 4RF hydrocodone-acetaminophen 7.5-325 mg tablet 1 - 2 tab PO QDAY PRN (Reason: Pain Level 3-6) 0RF aspirin 81 mg tablet,delayed release (DR/EC) 81 mg PO ONCE Qty: 30 9RF isosorbide mononitrate 60 mg tablet extended release 24 hr 60 mg PO QDAY 0RF loratadine [Allergy Relief (loratadine)] 10 mg tablet See Rx Instructions PO .COMPLEX 0RF Rx Instructions: unknown PO unknown; famotidine 40 mg tablet See Rx Instructions PO .COMPLEX 0RF Rx Instructions: unknown PO unknown; (DME) Accu-Chek Amanda Plus test strp Strip See Rx Instructions .ROUTE .MEDSUPPLY Qty: 100 12RF Rx Instructions: As directed test blood sugars 3 times daily nitroglycerin 0.4 mg tablet, sublingual 0.4 mg buccal Q5-15M PRN (Reason: Chest Pain) Qty: 7 0RF clopidogrel 75 mg tablet 75 mg PO QDAY Qty: 30 12RF dqjwixxyptjb-Qg-davm-minerals 18-0.4 mg tablet See Rx Instructions PO .COMPLEX 0RF Rx Instructions: unknown PO unknown; insulin glargine 100 unit/mL (3 mL) insulin pen 20 unit SUB-Q HS 0RF valsartan 160 mg tablet 320 mg PO QHS 0RF rosuvastatin 5 mg tablet 5 mg PO QHS 0RF Rx Instructions: 1 tablet once a day metoprolol succinate 25 mg tablet extended release 24 hr 25 mg PO QHS 0RF Follow Up Plan Follow up with: Hunter Denise MD, FAAFP [Primary Care Provider] - Sherwin Dodson MD [Physician] - Patient Disposition: Xfer SNF Prognosis: Fair Rehab Potential: Fair I certify that the patient requires SNF services: Yes Overall status at discharge: patient is progressing back to baseline
[2021-02-21] MEDS ORDERED: METOPROLOL SUCCINATE 25 MG TAB.XL.24H PO SCH (21:00)
[2021-02-21] MEDS ORDERED: NON FORMULARY MEDICATION 1 DOSE MISCELL (Rosuvastatin 5 mg tablet) PO SCH (21:00)
[2021-02-21] MEDS: OLMESARTAN MEDOXOMIL 20 MG TABLET PO SCH (21:07)
[2021-02-21] MEDS: FAMOTIDINE 20 MG TABLET PO SCH (21:07)
[2021-02-21] MEDS: INSULIN GLARGINE, HUMAN 1 UNIT/0.01 ML SQ SCH (21:10)
[2021-02-21] MEDS: ROSUVASTATIN 5 MG PO SCH (21:11)
[2021-02-22] MEDS: 0.9 % SODIUM CHLORIDE 10 ML SYRINGE IV SCH ×3 (04:16→21:11)
[2021-02-22] MEDS: INSULIN LISPRO 1 UNIT/0.01 ML UNIT SQ SCH ×4 (07:54→21:12)
[2021-02-22] MEDS: SPIRONOLACTONE 25 MG TABLET PO SCH (09:23)
[2021-02-22] MEDS: CLOPIDOGREL 75 MG TABLET PO SCH (09:24)
[2021-02-22] MEDS: ISOSORBIDE MONONITRATE 60 MG TAB.XL.24H PO SCH (09:24)
[2021-02-22] MEDS: FLUoxetine HCL 10 MG CAPSULE PO SCH ×2 (09:24→21:11)
[2021-02-22] MEDS: ENOXAPARIN 40 MG/0.4 ML SYRINGE SQ SCH (09:24)
[2021-02-22] MEDS: METOPROLOL SUCCINATE 25 MG TAB.XL.24H PO SCH (09:24)
[2021-02-22] MEDS: DOCUSATE SODIUM 100 MG CAPSULE PO SCH ×2 (09:24→21:11)
--- NOTE | 2021-02-22 10:17 | Internal Med Progress Note ---
SUBJECTIVE Subjective Patient information: Note initiated : 02/22/21 at 10:17 am Service Date, if different from initiated Date: [] Patient: Abel Cuevas 75 y/o M admitted on 02/20/21 for possible lt hip fx. Chief Complaint: [] Interval history: History of present illness: Mr. Cuevas is a 75 year old M With history of a neuro degenerative disorder which is currently being worked up by neurology, he sees a neurologist in [place] Dr. Velásquez. He is wheelchair-bound because of this but is able to transfer. 3 days ago he was transferring from wheelchair to car when he fell onto his right side with immediate pain. He was able to transfer after that but the pain has become progressively worse. Thus he presented to the ED where CT imaging was done which showed a nondisplaced fracture the right and inferior pubic ramus as well as fracture of the right acetabular roof and junction of the right pubic bone. Case was discussed with Dr. Dodson who stated this is nonoperative and that the patient should remain nonweightbearing at this time on that side. Denies any recent illnesses no chest pain shortness of breath or new complaints Patient is unsafe for home as he has limited support to care for him given his new nonweightbearing status. 02/21 No overnight or new complaints. Awaiting placement. Per Ortho nonweightbearing on that side for 4 to 6 weeks and follow-up with Ortho outpatient. 02/22 No changes. Awaiting placement. Review of Systems: denies headache/fever/chills/nausea/vomiting/chest or abdominal pain/cough/dyspnea/diarrhea. Otherwise see above. Constitutional Vitals: Vital Signs Temp Pulse Resp BP Pulse Ox 98.7 F 59 L 16 169/76 96 02/22/21 07:50 02/22/21 07:50 02/22/21 07:50 02/22/21 07:50 02/22/21 07:50 Period Temp Pulse Resp BP Sys/Hanson Pulse Ox Last 24 Hr 97.3 F-98.7 F 55-64 16-18 106-169/57-76 91-96 Intake and Output 02/21/21 02/22/21 02/22/21 21:59 05:59 13:59 Intake Total 800 240 120 Output Total 100 251 Balance 700 -11 120 Weight 86.324 kg Intake & Output: Intake & Output 02/21/21 02/22/21 02/22/21 21:59 05:59 13:59 Intake Total 800 240 120 Output Total 100 251 Balance 700 -11 120 Weight 86.324 kg Intake: Oral 800 240 120 Output: Void Amount 100 250 # of times incontinent of urine 1 Other: Meal Breakfast Percent of Meal Consumed 100% Feeding Ability Independent Urine Appearance Clear Clear Urine Color Dark Yellow Dark Yellow Urine Odor Strong Foul # Voids 1 Exam: General: Alert, Awake, No acute Distress Eyes/N/T: EOMI, Head/Neck: neck supple, CV: RRR, 3/6SM, normal s1/s2 Pulm: Clear b/l, no wheezing/rhonchi/rales Abd: soft, nontender, +BS x4 Ext: no clubbing/cyanosis/edema Neuro: Alert, no focal deficits, moves all extremities, Skin: warm/dry OBJ DATA Labs CBC & Chem 7: 02/20/21 14:24 02/20/21 14:24 Labs: Abnormal Lab Results 02/20/21 02/20/21 14:24 14:24 Lymph % (Auto) 15.1 L Lymph # (Auto) 1.17 L Sodium 132 L Creatinine 0.6 L Meds: Medications Acetaminophen (Acetaminophen 325 Mg Tablet) 650 mg PO Q6HP PRN; Protocol PRN Reason: Per Pain Protocol/Fever > 101 Hydrocodone Bitart/Acetaminophen (Hydrocodone/Apap 7.5/325mg Tablet) 1 - 2 tab PO DAILYP PRN; Protocol PRN Reason: Pain Level 3-6 Last Admin: 02/21/21 08:26 Dose: 1 tab Documented by: Albuterol/Ipratropium (Ipratropium/Albuterol 3 Ml Ampul.Neb) 3 ml NEB Q4HP PRN PRN Reason: Shortness Of Breath Clopidogrel Bisulfate (Clopidogrel 75 Mg Tablet) 75 mg PO QDAY [facility] Last Admin: 02/22/21 09:24 Dose: 75 mg Documented by: Dextrose (Dextrose 50% 50 Ml Vial) 0 ml IV UD PRN PRN Reason: Hypoglycemia Diagnostic Test (Pha) (Accu-Chek 1 Each Strip) 1 each FS ACHS [facility] Last Admin: 02/22/21 07:54 Dose: 1 each Documented by: Docusate Sodium (Docusate Sodium 100 Mg Capsule) 100 mg PO BID [facility] Last Admin: 02/22/21 09:24 Dose: 100 mg Documented by: Enoxaparin Sodium (Enoxaparin 40 Mg/0.4 Ml Syringe) 40 mg SQ DAILY [facility] Last Admin: 02/22/21 09:24 Dose: 40 mg Documented by: Famotidine (Famotidine 20 Mg Tablet) 40 mg PO [facility] Last Admin: 02/21/21 21:07 Dose: 40 mg Documented by: Fluoxetine HCl (Fluoxetine Hcl 10 Mg Capsule) 10 mg PO BID [facility] Last Admin: 02/22/21 09:24 Dose: 10 mg Documented by: Glucose (Dextrose 31 Gm Oral.Susp) 15 gm PO PRN PRN PRN Reason: Hypoglycemia Potassium Chloride 40 meq/ (Dextrose) 520 mls @ 130 mls/hr IV UD PRN PRN Reason: Potassium < 3 Magnesium Sulfate (Magnesium Sulfate) 2 gm in 50 mls @ 50 mls/hr IV UD PRN PRN Reason: Magnesium </= 1.6 Insulin Glargine (Insulin Glargine, Human 1 Unit/0.01 Ml) 20 unit SQ [facility] Last Admin: 02/21/21 21:10 Dose: Not Given Documented by: Insulin Human Lispro (Insulin Lispro 1 Unit/0.01 Ml Unit) 0 unit SQ [facility]; Protocol Last Admin: 02/22/21 07:54 Dose: Not Given Documented by: Isosorbide Mononitrate (Isosorbide Mononitrate 60 Mg Tab.Xl.24h) 60 mg PO QDAY [facility] Last Admin: 02/22/21 09:24 Dose: 60 mg Documented by: Methocarbamol (Methocarbamol 750 Mg Tablet) 750 mg PO TIDP PRN PRN Reason: Muscle Spasm Metoprolol Succinate (Metoprolol Succinate 25 Mg Tab.Xl.24h) 25 mg PO QDAY [facility] Last Admin: 02/22/21 09:24 Dose: 25 mg Documented by: Morphine Sulfate (Morphine 4 Mg/Ml Vial) 0 mg IV Q3HP PRN PRN Reason: Pain Nitroglycerin (Nitroglycerin 0.4 Mg Tab.Subl) 0.4 mg SL Q5M PRN PRN Reason: Chest Pain Olmesartan (Olmesartan Medoxomil 20 Mg Tablet) 40 mg PO QHS [facility] Last Admin: 02/21/21 21:07 Dose: 40 mg Documented by: Ondansetron HCl (Ondansetron 4 Mg/2 Ml Vial) 4 mg IV Q4HP PRN PRN Reason: Nausea And Vomiting Last Admin: 02/20/21 22:21 Dose: 4 mg Documented by: Rosuvastatin [ (Crestor] 5 Mg Tab) 1 dose PO HS [facility] Last Admin: 02/21/21 21:11 Dose: Not Given Documented by: Polyethylene Glycol (Polyethylene Glycol 3350 17 Gm Packet) 17 gm PO DAILYP PRN PRN Reason: Constipation Potassium Chloride (Potassium Chloride 20 Meq Tablet) 40 meq PO UD PRN PRN Reason: Potssium is 3-3.5 Potassium Chloride (Potassium Chloride 20 Meq Tablet) 40 meq PO UD PRN PRN Reason: Potassium < 3 Senna (Sennosides 1 Tablet) 2 tab PO DAILYP PRN PRN Reason: Constipation Sodium Chloride (0.9 % Sodium Chloride 10 Ml Syringe) 10 ml IV Q8 [facility] Last Admin: 02/22/21 04:16 Dose: 10 ml Documented by: Spironolactone (Spironolactone 25 Mg Tablet) 25 mg PO QDAY [facility] Last Admin: 02/22/21 09:23 Dose: 25 mg Documented by: A/P Narrative A/P Narrative: A: *Right acetabular and pubic rami fracture: -per Ortho this is nonoperative and patient should be nonweightbearing on that side for now *Neuro degenerative d/s NOS currently being worked up by neurology: Dr. Velásquez in [place] *Generalized weakness/deconditioning/debility: Patient is wheelchair-bound but typically able to transfer on his own, but not now *DM w/neuropathy: *CAD with CABG/stent: *HTN: *Depression: *GERD: P: -per Ortho this is nonoperative and patient should be nonweightbearing on that side 4-6wks, f/u with ortho outpt -pt/ot -CM for placement, awaiting -Pain control -cont /plavix/imdur -cont BB/ARB/aldactone -basal and SSI -ppx: lovenox / home H2 full code Time Spent With Patient Time: Total time spent is greater than 50% in coordination of care (as documented) at patient's floor/unit and/or counseling patient:
[2021-02-22] MEDS: OLMESARTAN MEDOXOMIL 20 MG TABLET PO SCH (21:10)
[2021-02-22] MEDS: FAMOTIDINE 20 MG TABLET PO SCH (21:11)
[2021-02-22] MEDS: INSULIN GLARGINE, HUMAN 1 UNIT/0.01 ML SQ SCH (21:12)
[2021-02-22] MEDS: ROSUVASTATIN 5 MG PO SCH (21:12)
[2021-02-23] MEDS: ONDANSETRON 4 MG/2 ML VIAL IV PRN (02:01)
[2021-02-23] MEDS: 0.9 % SODIUM CHLORIDE 10 ML SYRINGE IV SCH ×3 (04:57→21:04)
[2021-02-23] MEDS: INSULIN LISPRO 1 UNIT/0.01 ML UNIT SQ SCH ×4 (08:09→20:19)
[2021-02-23] MEDS: CLOPIDOGREL 75 MG TABLET PO SCH (08:51)
[2021-02-23] MEDS: METOPROLOL SUCCINATE 25 MG TAB.XL.24H PO SCH (08:52)
[2021-02-23] MEDS: SPIRONOLACTONE 25 MG TABLET PO SCH (08:52)
[2021-02-23] MEDS: FLUoxetine HCL 10 MG CAPSULE PO SCH ×2 (08:52→21:04)
[2021-02-23] MEDS: ENOXAPARIN 40 MG/0.4 ML SYRINGE SQ SCH (08:52)
[2021-02-23] MEDS: DOCUSATE SODIUM 100 MG CAPSULE PO SCH ×2 (08:52→21:04)
[2021-02-23] MEDS: ISOSORBIDE MONONITRATE 60 MG TAB.XL.24H PO SCH (08:52)
--- NOTE | 2021-02-23 14:52 | Internal Med Progress Note ---
SUBJECTIVE Subjective Patient information: Note initiated : 02/23/21 at 2:40 pm Service Date, if different from initiated Date: [] Patient: Abel Cuevas 75 y/o M admitted on 02/20/21 for possible lt hip fx. Chief Complaint: [right pelvic fracture] Interval history: Mr. Cuevas is a 75 year old M With history of a neuro degenerative disorder which is currently being worked up by neurology, he sees a neurologist in [place] Dr. Velásquez. He is wheelchair-bound because of this but is able to transfer. 3 days ago he was transferring from wheelchair to car when he fell onto his right side with immediate pain. He was able to transfer after that but the pain has become progressively worse. Thus he presented to the ED where CT imaging was done which showed a nondisplaced fracture the right and inferior pubic ramus as well as fracture of the right acetabular roof and junction of the right pubic bone. Case was discussed with Dr. Dodson who stated this is nonoperative and that the patient should remain nonweightbearing at this time on that side. Denies any recent illnesses no chest pain shortness of breath or new complaints Patient is unsafe for home as he has limited support to care for him given his new nonweightbearing status. 02/21 No overnight or new complaints. Awaiting placement. Per Ortho nonweightbearing on that side for 4 to 6 weeks and follow-up with Ortho outpatient. 02/22 No changes. Awaiting placement. 02/23: Denies any pelvic pain. No bowel movement in 3 days but still passing gas. Declined by [facility]. Constitutional Vitals: Vital Signs Temp Pulse Resp BP Pulse Ox 36.5 C 61 18 124/82 96 02/23/21 12:00 02/23/21 12:00 02/23/21 12:00 02/23/21 12:00 02/23/21 12:00 Period Temp Pulse Resp BP Sys/Hanson Pulse Ox Last 24 Hr 36.1 C-37.0 C 52-70 12- 110-154/60-93 90-96 Intake and Output 02/23/21 02/23/21 02/23/21 05:59 13:59 21:59 Intake Total 220 240 Output Total 402 Balance -182 240 Intake & Output: Intake & Output 02/23/21 02/23/21 02/23/21 05:59 13:59 21:59 Intake Total 220 240 Output Total 402 Balance -182 240 Intake: Oral 220 240 Output: Void Amount 400 # of times incontinent of urine 2 Other: Meal Breakfast Percent of Meal Consumed 100% Urine Appearance Clear Urine Color Pale General appearance: average body habitus, cooperative and no acute distress Head Head exam: Present atraumatic and normal inspection Eye Eye exam: Present normal appearance ENT ENT exam: Present mucous membranes moist, normal exam and normal external ear exam Neck Neck exam: Present normal inspection Respiratory Respiratory exam: Present normal respiratory exam Cardiovascular Cardiovascular exam: Present normal rate and rhythm GI/Abdominal GI/Abdominal exam: Present normal bowel sounds Back Exam Back exam: Present normal inspection Neurological Exam Neurological exam: Present alert and oriented X3 Skin Skin exam: Present intact and warm OBJ DATA Labs CBC & Chem 7: 02/20/21 14:24 02/20/21 14:24 Labs: Abnormal Lab Results 02/20/21 02/20/21 14:24 14:24 Lymph % (Auto) 15.1 L Lymph # (Auto) 1.17 L Sodium 132 L Creatinine 0.6 L Meds: Medications Acetaminophen (Acetaminophen 325 Mg Tablet) 650 mg PO Q6HP PRN; Protocol PRN Reason: Per Pain Protocol/Fever > 101 Last Admin: 02/22/21 21:10 Dose: 650 mg Documented by: Hydrocodone Bitart/Acetaminophen (Hydrocodone/Apap 7.5/325mg Tablet) 1 - 2 tab PO DAILYP PRN; Protocol PRN Reason: Pain Level 3-6 Last Admin: 02/21/21 08:26 Dose: 1 tab Documented by: Albuterol/Ipratropium (Ipratropium/Albuterol 3 Ml Ampul.Neb) 3 ml NEB Q4HP PRN PRN Reason: Shortness Of Breath Clopidogrel Bisulfate (Clopidogrel 75 Mg Tablet) 75 mg PO QDAY [facility] Last Admin: 02/23/21 08:51 Dose: 75 mg Documented by: Dextrose (Dextrose 50% 50 Ml Vial) 0 ml IV UD PRN PRN Reason: Hypoglycemia Diagnostic Test (Pha) (Accu-Chek 1 Each Strip) 1 each FS ACHS [facility] Last Admin: 02/23/21 11:36 Dose: 1 each Documented by: Docusate Sodium (Docusate Sodium 100 Mg Capsule) 100 mg PO BID [facility] Last Admin: 02/23/21 08:52 Dose: 100 mg Documented by: Enoxaparin Sodium (Enoxaparin 40 Mg/0.4 Ml Syringe) 40 mg SQ DAILY [facility] Last Admin: 02/23/21 08:52 Dose: 40 mg Documented by: Famotidine (Famotidine 20 Mg Tablet) 40 mg PO [facility] Last Admin: 02/22/21 21:11 Dose: 40 mg Documented by: Fluoxetine HCl (Fluoxetine Hcl 10 Mg Capsule) 10 mg PO BID [facility] Last Admin: 02/23/21 08:52 Dose: 10 mg Documented by: Glucose (Dextrose 31 Gm Oral.Susp) 15 gm PO PRN PRN PRN Reason: Hypoglycemia Potassium Chloride 40 meq/ (Dextrose) 520 mls @ 130 mls/hr IV UD PRN PRN Reason: Potassium < 3 Magnesium Sulfate (Magnesium Sulfate) 2 gm in 50 mls @ 50 mls/hr IV UD PRN PRN Reason: Magnesium </= 1.6 Insulin Glargine (Insulin Glargine, Human 1 Unit/0.01 Ml) 20 unit SQ [facility] Last Admin: 02/22/21 21:12 Dose: 20 units Documented by: Insulin Human Lispro (Insulin Lispro 1 Unit/0.01 Ml Unit) 0 unit SQ [facility]; Protocol Last Admin: 02/23/21 11:37 Dose: Not Given Documented by: Isosorbide Mononitrate (Isosorbide Mononitrate 60 Mg Tab.Xl.24h) 60 mg PO QDAY [facility] Last Admin: 02/23/21 08:52 Dose: 60 mg Documented by: Methocarbamol (Methocarbamol 750 Mg Tablet) 750 mg PO TIDP PRN PRN Reason: Muscle Spasm Metoprolol Succinate (Metoprolol Succinate 25 Mg Tab.Xl.24h) 25 mg PO QDAY [facility] Last Admin: 02/23/21 08:52 Dose: 25 mg Documented by: Morphine Sulfate (Morphine 4 Mg/Ml Vial) 0 mg IV Q3HP PRN PRN Reason: Pain Nitroglycerin (Nitroglycerin 0.4 Mg Tab.Subl) 0.4 mg SL Q5M PRN PRN Reason: Chest Pain Olmesartan (Olmesartan Medoxomil 20 Mg Tablet) 40 mg PO QHS [facility] Last Admin: 02/22/21 21:10 Dose: 40 mg Documented by: Ondansetron HCl (Ondansetron 4 Mg/2 Ml Vial) 4 mg IV Q4HP PRN PRN Reason: Nausea And Vomiting Last Admin: 02/23/21 02:01 Dose: 4 mg Documented by: Rosuvastatin [ (Crestor] 5 Mg Tab) 1 dose PO [facility] Polyethylene Glycol (Polyethylene Glycol 3350 17 Gm Packet) 17 gm PO DAILYP PRN PRN Reason: Constipation Potassium Chloride (Potassium Chloride 20 Meq Tablet) 40 meq PO UD PRN PRN Reason: Potssium is 3-3.5 Potassium Chloride (Potassium Chloride 20 Meq Tablet) 40 meq PO UD PRN PRN Reason: Potassium < 3 Senna (Sennosides 1 Tablet) 2 tab PO DAILYP PRN PRN Reason: Constipation Sodium Chloride (0.9 % Sodium Chloride 10 Ml Syringe) 10 ml IV Q8 [facility] Last Admin: 02/23/21 04:57 Dose: Not Given Documented by: Spironolactone (Spironolactone 25 Mg Tablet) 25 mg PO QDAY [facility] Last Admin: 02/23/21 08:52 Dose: 25 mg Documented by: A/P Narrative A/P Narrative: Assessment and Plans: 1. Nondisplaced right pelvic fracture: Stays in inpatient med surg Orthopedic surgeon saw patient and deemed as nonsurgical candidate Non-weight bearing on that side for 4-6 week. 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 HTN: Continue BB/ARB/Aldactone 4. CAD with CABG/stent: Continue Palvix/Imdur/statin 5. GERD: PEPCID 6. Depression: Fluoxetine GI ppx: PEPCID DVT ppx: Lovenox Code status: Full Prognosis: stable Disposition: inpatient med surg; pending SNF placement Time Spent With Patient Time: Total time spent is greater than 50% in coordination of care (as documented) at patient's floor/unit and/or counseling patient: Total time spent with greater than 50% in coordination of care (as documented) at patient's floor/unit and/or counseling patient:: 25 - 35 minutes
[2021-02-23] MEDS: HYDROCODONE/APAP 7.5/325MG TABLET PO PRN (16:25)
[2021-02-23] MEDS ORDERED: traZODone HCL 50 MG TABLET PO PRN (19:50)
[2021-02-23] MEDS ORDERED: ROSUVASTATIN 5 MG PO SCH (21:00)
[2021-02-23] MEDS ORDERED: SIMVASTATIN 20 MG TABLET PO SCH (21:00)
[2021-02-23] MEDS: OLMESARTAN MEDOXOMIL 20 MG TABLET PO SCH (21:03)
[2021-02-23] MEDS: INSULIN GLARGINE, HUMAN 1 UNIT/0.01 ML SQ SCH (21:03)
[2021-02-23] MEDS: FAMOTIDINE 20 MG TABLET PO SCH (21:04)
[2021-02-24] MEDS: 0.9 % SODIUM CHLORIDE 10 ML SYRINGE IV SCH (04:56)
[2021-02-24] MEDS: INSULIN LISPRO 1 UNIT/0.01 ML UNIT SQ SCH ×2 (07:53→11:45)
[2021-02-24] MEDS ORDERED: SENNOSIDES 1 TABLET PO SCH (09:00)
[2021-02-24] MEDS ORDERED: FLUoxetine HCL 10 MG CAPSULE PO SCH (09:00)
[2021-02-24] MEDS: ISOSORBIDE MONONITRATE 60 MG TAB.XL.24H PO SCH (09:02)
[2021-02-24] MEDS: CLOPIDOGREL 75 MG TABLET PO SCH (09:03)
[2021-02-24] MEDS: DOCUSATE SODIUM 100 MG CAPSULE PO SCH (09:03)
[2021-02-24] MEDS: SPIRONOLACTONE 25 MG TABLET PO SCH (09:03)
[2021-02-24] MEDS: METOPROLOL SUCCINATE 25 MG TAB.XL.24H PO SCH (09:03)
[2021-02-24] MEDS: ENOXAPARIN 40 MG/0.4 ML SYRINGE SQ SCH (09:04)
[2021-02-24] MEDS: HYDROCODONE/APAP 7.5/325MG TABLET PO PRN (10:43)
--- NOTE | 2021-02-24 11:15 | Discharge Summary ---
Discharge Provider Provider Patient information: Note initiated : 02/24/21 at 11:13 am Service Date, if different from initiated Date: [] Patient: Abel Cuevas 75 y/o M admitted on 02/20/21 for possible lt hip fx. Chief Complaint: [] Date of admission: 02/20/21 17:33 Discharge date: 02/24/21 Primary care physician: Hunter Denise M.D., F.A.A.F.P. Attending physician on admission: George Wood Consults: 02/20/21 Consult to Physician [CONS] Stat Comment: Consulting Provider: George Wood Reason For Exam: Physician to Consult 02/23/21 14:40 Consult to Physician [CONS] Routine Comment: Consulting Provider: [facility] Reason For Exam: Physician to Consult Attending physician on discharge: Jordan Ponce Pui Discharge Meds Discharge Medications Home Medications Standard Wheelchair #1 ea 01/17/19 [Rx Confirmed 02/20/21 Last Taken Unknown] aspirin 81 mg tablet,delayed release 81 mg PO ONCE #30 tab 06/03/19 [Rx Confirmed 02/20/21 Last Taken Unknown] Wheel chair ramp #1 ea 08/19/19 [Rx Confirmed 02/20/21 Last Taken Unknown] Wheelchair (electric) #1 ea 08/19/19 [Rx Confirmed 02/20/21 Last Taken Unknown] spironolactone 25 mg tablet 25 mg PO QDAY #90 tab 10/09/19 [Rx Confirmed 02/20/21 Last Taken Unknown] famotidine 40 mg tablet See Rx Instructions PO .COMPLEX 10/17/19 [History Confirmed 02/20/21 Last Taken Unknown] loratadine 10 mg tablet (Allergy Relief (loratadine)) See Rx Instructions PO .COMPLEX 10/17/19 [History Confirmed 02/20/21 Last Taken Unknown] lnrgwldaphjo-Rd-ahcy-minerals 18 mg-0.4 mg tablet See Rx Instructions PO .COMPLEX 10/17/19 [History Confirmed 02/20/21 Last Taken Unknown] isosorbide mononitrate 60 mg tablet,extended release 24 hr 60 mg PO QDAY tab 11/19/19 [History Confirmed 02/20/21 Last Taken Unknown] leg brace (Ankle Brace) #2 each 12/02/19 [Rx Confirmed 02/20/21 Last Taken Unknown] blood sugar diagnostic (Accu-Chek Amanda Plus test strp) #100 each 02/25/20 [Rx Confirmed 02/20/21 Last Taken Unknown] nitroglycerin 0.4 mg sublingual tablet 0.4 mg BUCCAL Q5-15M PRN #7 tab 02/25/20 [Rx Confirmed 02/20/21 Last Taken Unknown] Wheelchair #1 ea 04/16/20 [Rx Confirmed 02/20/21 Last Taken Unknown] Wheelchair #1 ea 04/16/20 [Rx Confirmed 02/20/21 Last Taken Unknown] fluoxetine 20 mg capsule 10 mg PO BID #180 cap 06/30/20 [Rx Confirmed 02/20/21 Last Taken Unknown] metformin 500 mg tablet 500 mg PO BID #180 tab 06/30/20 [Rx Confirmed 02/20/21 Last Taken Unknown] clopidogrel 75 mg tablet 75 mg PO QDAY #30 tab 09/02/20 [Rx Confirmed 02/20/21 Last Taken Unknown] insulin glargine 100 unit/mL (3 mL) subcutaneous pen 20 unit SUB-Q HS 02/20/21 [History Confirmed 02/20/21 Last Taken Unknown] metoprolol succinate 25 mg tablet,extended release 24 hr 25 mg PO QHS 02/20/21 [History Confirmed 02/20/21 Last Taken Unknown] rosuvastatin 5 mg tablet 5 mg PO QHS 02/20/21 [History Confirmed 02/20/21 Last Taken Unknown] valsartan 160 mg tablet 320 mg PO QHS 02/20/21 [History Confirmed 02/22/21 Last Taken Unknown] hydrocodone 7.5 mg-acetaminophen 325 mg tablet 1 - 2 tab PO QDAY PRN #20 tab 02/24/21 [Rx Last Taken Unknown] COURSE Hospital Course Hospital course: Mr. Cuevas is a 75 year old M With history of a neuro degenerative disorder which is currently being worked up by neurology, he sees a neurologist in [place] Dr. Velásquez. He is wheelchair-bound because of this but is able to transfer. 3 days ago he was transferring from wheelchair to car when he fell onto his right side with immediate pain. He was able to transfer after that but the pain has become progressively worse. Thus he presented to the ED where CT imaging was done which showed a nondisplaced fracture the right and inferior pubic ramus as well as fracture of the right acetabular roof and junction of the right pubic bone. Case was discussed with Dr. Dodson who stated this is nonoperative and that the patient should remain nonweightbearing at this time on that side. Denies any recent illnesses no chest pain shortness of breath or new complaints Patient is unsafe for home as he has limited support to care for him given his new nonweightbearing status. 02/21 No overnight or new complaints. Awaiting placement. Per Ortho nonweightbearing on that side for 4 to 6 weeks and follow-up with Ortho outpatient. 02/22 No changes. Awaiting placement. 02/23: Denies any pelvic pain. No bowel movement in 3 days but still passing gas. Declined by [facility]. 02/24: Reached clinical stability. Accepted by and being discharged to SNF today. Discharge diagnosis: pelvic fracture Time Spent with Patient Time attestation: Total time spent providing and/or coordinating discharge services: Time spent: Less than 30 minutes EXAM Constitutional Vitals: Temp Pulse Resp BP Pulse Ox 35.9 C L 54 L 16 161/83 94 02/24/21 08:00 02/24/21 08:00 02/24/21 08:00 02/24/21 08:00 02/24/21 08:00 General appearance: cooperative and no acute distress Head Head exam: Present atraumatic and normocephalic Eye Eye exam: Present EOMI and PERRL ENT ENT exam: Present mucous membranes moist, normal exam and normal external ear exam Neck Neck exam: Present normal inspection; Absent lymphadenopathy, tenderness or thyromegaly Respiratory Respiratory exam: Absent accessory muscle use, respiratory distress or wheezes Cardiovascular Cardiovascular exam: Present normal rate and rhythm; Absent JVD GI/Abdominal GI/Abdominal exam: Present normal bowel sounds and soft; Absent organomegaly or tenderness Rectal Rectal exam: Present deferred Extremities Exam Extremities exam: Present full ROM, normal capillary refill and normal inspection; Absent tenderness Neurological Exam Neurological exam: Present alert, CN II-XII intact and oriented X3; Absent motor sensory deficit Psychiatric Psychiatric exam: Present normal affect and normal mood; Absent anxious or depressed Skin Skin exam: Present dry and intact Discharge Plan Patient/Caregiver Discharge Instructions Activity: non-weight bearing Diet: Consistent Carbohydrate Activity Restrictions/Additional Instructions: Nonweightbearing on right side for 4 to 6 weeks, follow-up with orthopedic surgery Dr. Dodson. Prescriptions: Continued (DME) Standard Wheelchair standard Qty: 1 0RF Rx Instructions: Please provider a standard size wheel chair for patient. If insurance will pay for electric please patient would like that (DME) Wheelchair (electric) Qty: 1 0RF Rx Instructions: As directed (DME) Wheel chair ramp Qty: 1 0RF Rx Instructions: As directed spironolactone 25 mg tablet 25 mg PO QDAY Qty: 90 4RF (DME) Ankle Brace Misc See Rx Instructions .ROUTE .MEDSUPPLY Qty: 2 0RF Rx Instructions: As directed (DME) Wheelchair Manual Qty: 1 0RF Rx Instructions: As directed (DME) Wheelchair Electric Qty: 1 0RF Rx Instructions: As directed fluoxetine 20 mg capsule 10 mg PO BID Qty: 180 4RF metformin 500 mg tablet 500 mg PO BID Qty: 180 4RF aspirin 81 mg tablet,delayed release (DR/EC) 81 mg PO ONCE Qty: 30 9RF isosorbide mononitrate 60 mg tablet extended release 24 hr 60 mg PO QDAY 0RF loratadine [Allergy Relief (loratadine)] 10 mg tablet See Rx Instructions PO .COMPLEX 0RF Rx Instructions: unknown PO unknown; famotidine 40 mg tablet See Rx Instructions PO .COMPLEX 0RF Rx Instructions: unknown PO unknown; (DME) Accu-Chek Amanda Plus test strp Strip See Rx Instructions .ROUTE .MEDSUPPLY Qty: 100 12RF Rx Instructions: As directed test blood sugars 3 times daily nitroglycerin 0.4 mg tablet, sublingual 0.4 mg buccal Q5-15M PRN (Reason: Chest Pain) Qty: 7 0RF clopidogrel 75 mg tablet 75 mg PO QDAY Qty: 30 12RF avcmbkvdpafk-Xp-aedg-minerals 18-0.4 mg tablet See Rx Instructions PO .COMPLEX 0RF Rx Instructions: unknown PO unknown; insulin glargine 100 unit/mL (3 mL) insulin pen 20 unit SUB-Q HS 0RF valsartan 160 mg tablet 320 mg PO QHS 0RF Rx Instructions: pts states that at home they split this medication into two half doses- 160 mg BID rosuvastatin 5 mg tablet 5 mg PO QHS 0RF Rx Instructions: 1 tablet once a day metoprolol succinate 25 mg tablet extended release 24 hr 25 mg PO QHS 0RF hydrocodone-acetaminophen 7.5-325 mg tablet 1 - 2 tab PO QDAY PRN (Reason: Pain Level 3-6) Qty: 20 0RF Follow Up Plan Follow up with: Sherwin Dodson MD [Physician] - Hunter Denise MD, FAAFP [Primary Care Provider] - Patient Disposition: Xfer SNF Prognosis: Fair Rehab Potential: Fair I certify that the patient requires SNF services: Yes Overall status at discharge: patient is progressing back to baseline Discharge Orders: Discharge Order (Routine); Ordered 02/24/21 Ordered By: Jordan Palencia
== END 2021-02-24 12:35 | DRG 535 ==
LOC: ED 11:13 → MEDSUR 17:33
PROVIDERS: ADMIT Internal Medicine; ATTEND Internal Medicine